=== PATIENT | male | born 1970 | race Two or more races ===

== ENCOUNTER 2025-09-21 00:24 | Emergency (ER) | payer OTHER, MEDICAID ==
[~2025-09-21] VITALS: Ht 185.4 cm; Wt 114.8 kg
--- NOTE | 2025-09-21 02:27 | DVH ---
EXAMINATION: XY R RIB XRAY INDICATION: INJURY COMPARISON: None TECHNIQUE: Frontal view of the chest and 4 views of the right ribs history FINDINGS: No focal consolidation, pleural effusion or significant pneumothorax. Normal cardiomediastinal silhou ette. No displaced right rib fracture. IMPRESSION: 1. No acute cardiopulmonary disease. 2. No displaced right rib fracture.
[2025-09-21] MEDS ORDERED: TIZA-142 PO (02:46)
[2025-09-21] MEDS ORDERED: NABU-74 PO (02:46)
--- NOTE | 2025-09-21 02:48 | ED.PDOC ---
Back pain HPI HPI Comments PT COMES WITH C/C OF RIGHT SIDED RIB PAIN. 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 DENIES DIFFICULTY BREATHING, SHORTNESS OF BREATH OR COUGHING UP BLOOD. Chief Complaint: Rib Pain Time Seen by MD: 00:46 Reviewed Notes: Nurses Notes, Medications, Allergies Information Source: Patient Mode of Arrival: Ambulatory Past Medical History PAST MEDICAL HISTORY: Denies Surgical History: Denies all surgeries Family History Family History: Reviewed,noncontributory to illness Social History Smoker: Non-Smoker Alcohol: Denies ETOH Use Drugs: Denies Drug Use All Other Systems: Reviewed and Negative (SEE HPI) Physical Exam General Appearance: No Apparent Distress, Normal HEENT: Pharynx Normal Neck: Full Range of Motion, Non-Tender Respiratory: Lungs Clear, No Accessory Muscle Use, No Respiratory Distress, Normal Breath Sounds, Other (RIGHT LATERAL RIB TENDERNESS ON PALPATION NO NOTED CREPITUS TRACE EDEMA NO NOTED ECCHYMOSIS OR OPEN LESIONS LACERATIONS OR ABRASIONS) Cardiovascular: No Edema, No JVD, No Murmur, No Gallop, Normal Peripheral Pulses, Regular Rate/Rhythm Breast Exam: Deferred Gastrointestinal: Non Tender, Soft Genitalia: Deferred Pelvic: Deferred Rectal: Deferred Extremities: Normal range of motion, No pedal edema Musculoskeletal : Apperance: Normal Neurologic: Alert, No Motor Deficits, Normal Affect, Normal Mood, No Sensory Deficits Cerebellar Function: Normal Reflexes: NOT DONE Skin: Dry, Normal Color, Warm Lymphatic: No Adenopathy Was a procedure done? Was a procedure done?: No Back Pain Differential Dx Differential Diagnosis: Fracture, Musculoskeletal Pain X-Ray, Labs, Meds, VS Vital Signs Date Time Temp Pulse Resp B/P (MAP) Pulse Ox O2 Delivery O2 Flow Rate FiO2 09/21/25 00:25 97.2 65 18 122/87 95 97.2 X-Ray, Labs, Meds, VS Comment Patient given Toradol 60 mg IM and Decadron 10 mg IM and [place] 10 mg p.o.. Reports improvement in pain and function requesting discharge at this time. Script trial of nsaid and muscle relaxer advised take medication as prescribed side effects discussed. Advised to alternate between ice and heat. Advised to rest. Advised to follow up with PCP in 2-3 days as necessary consider further treatments such as MRI, physical therapy, or pain managment referral if symptoms persist. Advised on ER return precautions for increasing pain, numbness, weakness, loss of bowel bladder control or saddle anesthesia. Patient indicates understanding agrees with discharge plan of care. Time of 1ST Reevaluation: 01:30 Reevaluation 1ST: Unchanged Time of 2ND Reevaluation: 02:47 Reevaluation 2ND: Improved Patient Education/Counseling: Diagnosis, Treatment, Need For Follow Up Family Education/Counseling: No Family Present SEPSIS Sepsis Screen Date sepsis recognized/suspect: Sep 21, 2025 Time Sepsis recognized/suspect: 0028 Recent Procedure: No On Antibiotic Therapy: No Respiratory Rate >20: No Heart Rate >90: No Temp<36 C (96.8 F) or >38.3 C: No SBP <90 or MAP <65 mmHG: No New Acute Mental Status Change: No Is the patient on CPAP, BIPAP,: No Physician Orders R Rib Xray (09/21/25 00:29) Ketorolac Injection (Toradol Injection) (09/21/25 02:45) Hydrocodone-Acet 10/325mg Tab ([place] 10/ (09/21/25 02:45) Vital Signs Date Time Temp Pulse Resp B/P (MAP) Pulse Ox O2 Delivery O2 Flow Rate FiO2 09/21/25 00:25 97.2 65 18 122/87 95 97.2 Departure 1 Departure Time of Disposition: 02:45 Impression: Primary Impression: Contusion of rib on right side Qualified Codes: S29.8XXA - Other specified injuries of thorax, initial encounter Disposition: 01 HOME / SELF CARE / HOMELESS Condition: Stable e-Prescriptions Nabumetone (Nabumetone) 750 Mg Tab 1 TAB PO BID PRN for 7 Days, #14 TAB Prov: LUCY ALBA 09/21/25 Tizanidine Hydrochloride (Tizanidine Hcl) 4 Mg Tab 4 MG PO BID PRN for 7 Days, #14 TAB Prov: LUCY ALBA 09/21/25 Discharged With: Spouse Critical Care Note Critical Care Time?: No Stability Stability form required: No LUCY ALBA Sep 21, 2025 02:48
[2025-09-21] MEDS: KETOROLAC TROMETH 60MG/2ML VIAL IM ONE (02:58)
[2025-09-21] MEDS: HYDROcodone-ACET 10/325MG TAB PO ONE (03:05)
[2025-09-21 03:11] VITALS: BP 122/87; PULSE 65; RESP 20; TEMP 97.8; O2SAT 96
== END 2025-09-21 03:13 | disposition home or self-care (01) ==
LOC: ER 00:24
DX: S20.211A Contusion of right front wall of thorax, initial encounter (principal); W22.8XXA Striking against or struck by other objects, initial encounter; Y93.89 Activity, other specified; Y92.89 Other specified places as the place of occurrence of the external cause; Y99.8 Other external cause status
CPT/HCPCS: 71101